=== PATIENT | male | born 1970 | race Two or more races ===

== ENCOUNTER 2017-11-16 05:32 | Emergency (ER) | payer BC ==
[~2017-11-16] VITALS: Ht 175.3 cm; Wt 68.0 kg
[2017-11-16 05:39] VITALS: BP 131/79
--- NOTE | 2017-11-16 06:11 | NUR ---
DR. CHAMPAGNE AT BEDSIDE FOR EVAL.
== END 2017-11-16 06:27 | disposition home or self-care (01) ==
LOC: ER 05:40
DX: H66.93 Otitis media, unspecified, bilateral (principal)
CPT/HCPCS: A4606; Z7610

== ENCOUNTER 2017-11-18 19:25 | Emergency (ER) | payer BC ==
[~2017-11-18] VITALS: Ht 177.8 cm; Wt 80.7 kg
[2017-11-18 19:30] VITALS: BP 123/75
== END 2017-11-18 21:26 | disposition home or self-care (01) ==
LOC: ER 19:25
DX: H93.8X3 Other specified disorders of ear, bilateral (principal)
CPT/HCPCS: 99282; A4606; Z7610